=== PATIENT | male | born 1955 | race Caucasian/White ===

== ENCOUNTER → 2019-06-16 10:00 | Outpatient (BNVA) | payer MEDICARE, MEDICAID, SELFPAY | PROVIDERS: Family Provider Family Medicine; Visit Provider Nurse Practitioner | DX: F31.78 Bipolar disorder, in full remission, most recent episode mixed (principal) | CPT/HCPCS: 99213 ==

== ENCOUNTER → 2019-07-14 08:44 | Outpatient (BNVA) | payer MEDICARE, MEDICAID, SELFPAY | PROVIDERS: Family Provider Family Medicine; Visit Provider Nurse Practitioner | DX: F31.78 Bipolar disorder, in full remission, most recent episode mixed (principal) | CPT/HCPCS: 99213 ==

== ENCOUNTER → 2019-08-11 08:14 | Outpatient (BNVA) | payer MEDICARE, MEDICAID, SELFPAY | PROVIDERS: Family Provider Family Medicine; Visit Provider Nurse Practitioner | DX: F31.78 Bipolar disorder, in full remission, most recent episode mixed (principal) | CPT/HCPCS: 99213 ==

== ENCOUNTER → 2019-09-08 08:09 | Outpatient (BNVA) | payer MEDICARE, MEDICAID, SELFPAY | PROVIDERS: Family Provider Family Medicine; Visit Provider Nurse Practitioner | DX: F31.78 Bipolar disorder, in full remission, most recent episode mixed (principal) | CPT/HCPCS: 99213 ==

== ENCOUNTER → 2019-10-06 07:49 | Outpatient (BNVA) | payer MEDICARE, MEDICAID, SELFPAY | PROVIDERS: Family Provider Family Medicine; Visit Provider Nurse Practitioner | DX: F31.78 Bipolar disorder, in full remission, most recent episode mixed (principal) | CPT/HCPCS: 99213 ==

== ENCOUNTER → 2019-11-03 07:38 | Outpatient (BNVA) | payer MEDICARE, MEDICAID, SELFPAY | PROVIDERS: Family Provider Family Medicine; Visit Provider Nurse Practitioner | DX: F31.78 Bipolar disorder, in full remission, most recent episode mixed (principal) | CPT/HCPCS: 99213 ==

== ENCOUNTER → 2019-12-01 07:41 | Outpatient (BNVA) | payer MEDICARE, MEDICAID, SELFPAY | PROVIDERS: Family Provider Family Medicine; Visit Provider Nurse Practitioner | DX: F31.78 Bipolar disorder, in full remission, most recent episode mixed (principal) | CPT/HCPCS: 99213 ==

== ENCOUNTER → 2019-12-29 07:50 | Outpatient (BNVA) | payer MEDICARE, MEDICAID, SELFPAY | PROVIDERS: Family Provider Family Medicine; Visit Provider Nurse Practitioner | DX: F31.78 Bipolar disorder, in full remission, most recent episode mixed (principal) | CPT/HCPCS: 99213 ==

== ENCOUNTER → 2020-01-31 07:32 | Outpatient (BNVA) | payer MEDICARE, MEDICAID, SELFPAY | PROVIDERS: Family Provider Family Medicine; Visit Provider Nurse Practitioner | DX: F31.78 Bipolar disorder, in full remission, most recent episode mixed (principal) | CPT/HCPCS: 96372; 99213 ==

== ENCOUNTER → 2020-02-28 07:50 | Outpatient (BNVA) | payer MEDICARE, MEDICAID, SELFPAY | PROVIDERS: Family Provider Family Medicine; Visit Provider Nurse Practitioner | DX: F31.78 Bipolar disorder, in full remission, most recent episode mixed (principal); Z79.899 Other long term (current) drug therapy; F43.12 Post-traumatic stress disorder, chronic | CPT/HCPCS: 96372; 99213 ==

== ENCOUNTER → 2020-03-27 07:35 | Outpatient (BNVA) | payer MEDICARE, MEDICAID, SELFPAY | PROVIDERS: Family Provider Family Medicine; Visit Provider Nurse Practitioner | DX: F31.78 Bipolar disorder, in full remission, most recent episode mixed (principal) | CPT/HCPCS: 96372; 99213 ==

== ENCOUNTER → 2020-04-24 08:06 | Outpatient (BNVA) | payer MEDICARE, MEDICAID, SELFPAY | PROVIDERS: Family Provider Family Medicine; Visit Provider Nurse Practitioner | DX: F31.78 Bipolar disorder, in full remission, most recent episode mixed (principal) | CPT/HCPCS: 96372; 99213 ==

== ENCOUNTER → 2020-05-22 09:30 | Outpatient (BNVA) | payer MEDICARE, MEDICAID, SELFPAY | PROVIDERS: Family Provider Family Medicine; Visit Provider Nurse Practitioner | DX: F31.78 Bipolar disorder, in full remission, most recent episode mixed (principal) | CPT/HCPCS: 99214 ==

== ENCOUNTER → 2020-06-20 08:42 | Outpatient (BNVA) | payer MEDICARE, MEDICAID, SELFPAY | PROVIDERS: Family Provider Family Medicine; Visit Provider Nurse Practitioner | DX: F31.78 Bipolar disorder, in full remission, most recent episode mixed (principal) | CPT/HCPCS: 96372; 99213 ==

== ENCOUNTER → 2020-07-22 08:32 | Outpatient (BNVA) | payer MEDICARE, MEDICAID, SELFPAY | PROVIDERS: Family Provider Family Medicine; Visit Provider Nurse Practitioner | DX: F31.78 Bipolar disorder, in full remission, most recent episode mixed (principal); F41.1 Generalized anxiety disorder | CPT/HCPCS: 96372; 99214 ==

== ENCOUNTER → 2020-08-19 07:52 | Outpatient (BNVA) | payer MEDICARE, MEDICAID, SELFPAY | PROVIDERS: Family Provider Family Medicine; Visit Provider Nurse Practitioner | DX: F31.78 Bipolar disorder, in full remission, most recent episode mixed (principal); F41.1 Generalized anxiety disorder | CPT/HCPCS: 96372; 99214 ==

== ENCOUNTER → 2020-09-16 08:10 | Outpatient (BNVA) | payer MEDICARE, MEDICAID, SELFPAY | PROVIDERS: Family Provider Family Medicine; Visit Provider Nurse Practitioner | DX: F31.78 Bipolar disorder, in full remission, most recent episode mixed (principal); F41.1 Generalized anxiety disorder | CPT/HCPCS: 96372; 99214 ==

== ENCOUNTER → 2020-10-14 08:19 | Outpatient (BNVA) | payer MEDICARE, MEDICAID, SELFPAY | PROVIDERS: Family Provider Family Medicine; Visit Provider Nurse Practitioner | DX: F31.78 Bipolar disorder, in full remission, most recent episode mixed (principal); F41.1 Generalized anxiety disorder | CPT/HCPCS: 96372; 99214 ==

== ENCOUNTER → 2020-11-14 08:04 | Outpatient (BNVA) | payer MEDICARE, MEDICAID, SELFPAY | PROVIDERS: Family Provider Family Medicine; Visit Provider Nurse Practitioner | DX: F31.78 Bipolar disorder, in full remission, most recent episode mixed (principal); F41.1 Generalized anxiety disorder | CPT/HCPCS: 96372; 99214 ==

== ENCOUNTER → 2020-12-12 08:08 | Outpatient (BNVA) | payer MEDICARE, MEDICAID, SELFPAY | PROVIDERS: Family Provider Family Medicine; Visit Provider Nurse Practitioner | DX: F31.78 Bipolar disorder, in full remission, most recent episode mixed (principal); F41.1 Generalized anxiety disorder | CPT/HCPCS: 96372; 99214 ==

== ENCOUNTER → 2021-01-10 07:56 | Outpatient (BNVA) | payer MEDICARE, MEDICAID, SELFPAY | PROVIDERS: Family Provider Family Medicine; Visit Provider Nurse Practitioner | DX: F31.78 Bipolar disorder, in full remission, most recent episode mixed (principal) | CPT/HCPCS: 96372; 99214 ==

== ENCOUNTER → 2021-02-06 07:55 | Outpatient (BNVA) | payer MEDICARE, MEDICAID, SELFPAY | PROVIDERS: Family Provider Family Medicine; Visit Provider Nurse Practitioner | DX: F31.78 Bipolar disorder, in full remission, most recent episode mixed (principal); F41.1 Generalized anxiety disorder | CPT/HCPCS: 96372; 99214 ==

== ENCOUNTER → 2021-03-06 12:02 | Outpatient (BNVA) | payer MEDICARE, MEDICAID, SELFPAY | PROVIDERS: Family Provider Family Medicine; Visit Provider Nurse Practitioner | DX: F31.78 Bipolar disorder, in full remission, most recent episode mixed (principal) | CPT/HCPCS: 96372; 99214 ==

== ENCOUNTER → 2021-04-03 08:20 | Outpatient (BNVA) | payer MEDICARE, MEDICAID, SELFPAY | PROVIDERS: Family Provider Family Medicine; Visit Provider Nurse Practitioner | DX: F31.78 Bipolar disorder, in full remission, most recent episode mixed (principal) | CPT/HCPCS: 96372; 99214 ==

== ENCOUNTER → 2021-05-01 08:03 | Outpatient (BNVA) | payer MEDICARE, MEDICAID, SELFPAY | PROVIDERS: Family Provider Family Medicine; Visit Provider Nurse Practitioner | DX: F31.78 Bipolar disorder, in full remission, most recent episode mixed (principal); F41.1 Generalized anxiety disorder | CPT/HCPCS: 96372; 99214 ==

== ENCOUNTER → 2021-05-29 07:36 | Outpatient (BNVA) | payer MEDICARE, MEDICAID, SELFPAY | PROVIDERS: Family Provider Family Medicine; Visit Provider Nurse Practitioner | DX: F31.78 Bipolar disorder, in full remission, most recent episode mixed (principal); F41.1 Generalized anxiety disorder | CPT/HCPCS: 96372; 99214 ==

== ENCOUNTER → 2021-06-26 07:32 | Outpatient (BNVA) | payer MEDICARE, MEDICAID, SELFPAY | PROVIDERS: Family Provider Family Medicine; Visit Provider Nurse Practitioner | DX: F31.78 Bipolar disorder, in full remission, most recent episode mixed (principal); F41.1 Generalized anxiety disorder | CPT/HCPCS: 96372; 99214 ==

== ENCOUNTER → 2021-07-30 09:16 | Outpatient (BNVA) | payer MEDICARE, MEDICAID, SELFPAY | PROVIDERS: Family Provider Family Medicine; Visit Provider Nurse Practitioner | DX: F31.78 Bipolar disorder, in full remission, most recent episode mixed (principal); F41.1 Generalized anxiety disorder | CPT/HCPCS: 96372; 99214 ==

== ENCOUNTER → 2021-08-21 07:42 | Outpatient (BNVA) | payer MEDICARE, MEDICAID, SELFPAY | PROVIDERS: Family Provider Family Medicine; Visit Provider Nurse Practitioner | DX: F31.78 Bipolar disorder, in full remission, most recent episode mixed (principal); F41.1 Generalized anxiety disorder | CPT/HCPCS: 96372; 99214 ==

== ENCOUNTER → 2021-09-18 07:58 | Outpatient (BNVA) | payer MEDICARE, MEDICAID, SELFPAY | PROVIDERS: Family Provider Family Medicine; Visit Provider Nurse Practitioner | DX: F41.1 Generalized anxiety disorder (principal); F31.78 Bipolar disorder, in full remission, most recent episode mixed | CPT/HCPCS: 96372; 99214 ==

== ENCOUNTER → 2021-10-16 07:46 | Outpatient (BNVA) | payer MEDICARE, MEDICAID, SELFPAY | PROVIDERS: Family Provider Family Medicine; Visit Provider Nurse Practitioner | DX: F41.1 Generalized anxiety disorder (principal); F31.78 Bipolar disorder, in full remission, most recent episode mixed | CPT/HCPCS: 96372; 99214 ==

== ENCOUNTER → 2021-12-11 08:01 | Outpatient (BNVA) | payer MEDICARE, MEDICAID, SELFPAY | PROVIDERS: Family Provider Family Medicine; Visit Provider Nurse Practitioner | DX: F41.1 Generalized anxiety disorder (principal); F31.78 Bipolar disorder, in full remission, most recent episode mixed | CPT/HCPCS: 96372; 99214 ==

== ENCOUNTER → 2023-09-23 08:21 | Outpatient (BNVA) | payer MEDICARE, OTHER, SELFPAY | PROVIDERS: Family Provider Family Medicine; Visit Provider Nurse Practitioner Family | DX: L57.8 Other skin changes due to chronic exposure to nonionizing radiation (principal); D22.39 Melanocytic nevi of other parts of face ==

== ENCOUNTER → 2024-09-21 10:50 | Outpatient (BNVA) | payer MEDICARE, SELFPAY | PROVIDERS: Family Provider Family Medicine; Visit Provider Nurse Practitioner Family | DX: L82.1 Other seborrheic keratosis (principal); L73.8 Other specified follicular disorders; D69.2 Other nonthrombocytopenic purpura; L57.8 Other skin changes due to chronic exposure to nonionizing radiation; D22.39 Melanocytic nevi of other parts of face; L90.5 Scar conditions and fibrosis of skin | CPT/HCPCS: 99213 ==